=== PATIENT | male | born 1975 | race Caucasian/White ===

== ENCOUNTER 2022-07-02 09:39 | Emergency (ER) | payer MEDICAID ==
[~2022-07-02] VITALS: Ht 170.2 cm; Wt 79.5 kg
[2022-07-02] MEDS ORDERED: BACI28OI29 TP (10:15)
[2022-07-02] MEDS ORDERED: DOXYCYCLINE HYCLATE 100 MG TABLET PO ONE (10:15)
[2022-07-02] MEDS ORDERED: DOXY-354 PO (10:15)
[2022-07-02] MEDS ORDERED: BACITRACIN 0.9 GM PACKET OINTMENT TP ONE (10:15)
[2022-07-02 10:24] VITALS: BP 117/70
[2022-07-02 10:26] LABS: GLUCOSE,POINT OF CARE 103 MG/DL (70-110)
== END 2022-07-02 10:35 | disposition home or self-care (01) ==
LOC: EMS 09:45
DX: L03.115 Cellulitis of right lower limb (principal); H00.014 Hordeolum externum left upper eyelid
CPT/HCPCS: 82962; 99283